=== PATIENT | male | born 1965 | race Caucasian/White ===

== ENCOUNTER 2022-04-11 06:28 | Day surgery (SDC) | payer OTHER ==
[~2022-04-11] VITALS: Ht 167.6 cm; Wt 83.9 kg
[~2022-04-11 06:28] MED LIST: AMLOD/BENAZP1 CA3 PO; ASPIRIN81 MG PO; LIPITOR20 M1 PO; LORATADINE10 M1 PO; METOPROL TAR25 MG PO; PROTONIX20 M1 PO; TAMSULOSIN HCL0.4 MG PO
[2022-04-11 10:39] VITALS: BP 122/82
== END 2022-04-11 10:25 | DRG 948 ==
LOC: ORM 06:28 → EDSEX 06:28 → ORM 07:30
PROVIDERS: ATTEND Urology
PROC: 0VB03ZX Excision of Prostate, Percutaneous Approach, Diagnostic (ICD-10-PCS; principal; 2022-04-11)
DX: R97.20 Elevated prostate specific antigen [PSA] (principal); N40.1 Benign prostatic hyperplasia with lower urinary tract symptoms; N13.8 Other obstructive and reflux uropathy; R33.8 Other retention of urine; I10 Essential (primary) hypertension; E78.5 Hyperlipidemia, unspecified
CPT/HCPCS: J0131; J1956